=== PATIENT | female | born 1985 | race Asian ===

== ENCOUNTER 2016-09-10 15:18 | Outpatient (CLI) | payer OTHER ==
[2016-09-10 16:21] LABS: BILIRUBIN,URINE NEGATIVE (NEGATIVE); BLOOD, URINE NEGATIVE (NEGATIVE); CLARITY/URINE CLEAR (CLEAR); COLOR,URINE YELLOW (YELLOW); GLUCOSE,URINE NEGATIVE (NEGATIVE); KETONES,URINE TRACE (NEGATIVE); LEUKOCYTE ESTERASE ,URINE NEGATIVE (NEGATIVE); NITRITE, URINE NEGATIVE (NEGATIVE); PH,URINE 7.5 (5.0-8.0); PROTEIN URINE TRACE (NEGATIVE); UROBILINOGEN,URINE 0.2 (0.2-1.0)
[2016-09-10 16:34] LABS: CREATININE 0.99 mg/dL (0.55-1.30); POTASSIUM 4.7 mmol/L (3.5-5.1)
[2016-09-10 18:34] LABS: RBC,URINE NONE SEEN /HPF (0-3); WBC,URINE 0-3 /HPF (0-3)
[2016-09-10 18:35] LABS: BACTERIA,URINE FEW /HPF (None Seen); MUCUS,URINE 1+ /LPF (None Seen)
[2016-09-12 01:51] LABS: CREATININE, URINE 244.7 mg/dL; MICROALBUMIN URINE RANDOM 10.1 ug/ml (NOT ESTABLISHED); MICROALBUMIN/CREAT RATIO, UR 4.1 MG/G CRE (0.0-30.0)
== END 2016-09-10 19:40 | disposition home or self-care (01) ==
LOC: SLB 15:18
PROVIDERS: ATTEND Family Medicine
DX: R73.03 Prediabetes (principal)
CPT/HCPCS: 36415; 80048; 80061; 81000-TC; 82043; 82570; 83036